=== PATIENT | male | born 2005 | race Caucasian/White ===

== ENCOUNTER 2024-11-24 12:57 | Outpatient (REF) | payer MEDICAID, SELFPAY ==
[2024-11-28 14:17] LABS: C. Trachomatis RNA TMA, Throat NOT DETECTED; N. gonorrhoeae RNA TMA, Throat NOT DETECTED
[2024-11-28 14:23] LABS: C.Trachomatis RNA TMA, Rectal NOT DETECTED; N.Gonorrhoeae RNA TMA, Rectal NOT DETECTED
== END 2024-11-24 12:58 | disposition home or self-care (01) ==
LOC: HO.HHCLNP 12:57
PROVIDERS: Visit Provider Internal Medicine
DX: Z11.3 Encounter for screening for infections with a predominantly sexual mode of transmission (principal); Z01.84 Encounter for antibody response examination
CPT/HCPCS: 36415; 87491; 87591

== ENCOUNTER 2025-03-30 11:35 | Outpatient (REF) | payer MEDICAID, SELFPAY ==
[2025-03-30 13:07] LABS: MANUAL DIFF FLAG NO
[2025-03-30 13:18] LABS: Basophils Percent Auto 0.6 % (0-2); Eosinophils Absolute Auto 0.1 X10*3/uL (0.0-0.4); Eosinophils Percent Auto 1.1 % (0-4); Hematocrit 44.5 % (42.0-52.0); Hemoglobin 14.6 g/dl (14.0-18.0); Imm Gran Abs Auto 0.01 X10*3/uL (0.00-0.03); Imm Gran Pct Auto 0.2 % (0.0-0.4); Lymphocytes Absolute Auto 2.3 X10*3/uL (1.2-4.9); Lymphocytes Percent Auto 43.7 % (20-40); Mean Corpuscular HGB Conc 32.8 g/dl (31.0-36.0); Mean Corpuscular Hemoglobin 25.9 pg (27.0-33.0); Mean Platelet Volume 10.5 fL (9.4-12.4); Monocytes Absolute Auto 0.5 X10*3/uL (0.1-1.2); Monocytes Percent Auto 10.1 % (2-11); Neutrophils Absolute Auto 2.3 x10*3/uL (2.0-8.3); Neutrophils Percent Auto 44.3 % (45-73); Platelet Count 282 X10*3/uL (160-400); Red Blood Count 5.63 X10*6/uL (4.60-5.80); White Blood Count 5.3 X10*3/uL (4.8-10.8)
[2025-03-30 14:07] LABS: Alanine Aminotransferase 21 U/L (0-40); Albumin Level 4.6 g/dL (3.5-5.0); Alkaline Phosphatase 124 U/L (39-117); Anion Gap 11 (12-20); Aspartate Amino Transferase 24 U/L (5-37); Bilirubin Total 0.3 mg/dL (0.0-1.0); Blood Urea Nitrogen 10 mg/dL (9-16); Calcium 9.7 mg/dL (8.4-10.2); Carbon Dioxide 27 mmol/L (22-29); Chloride 105 mmol/L (96-108); Estimated Glomerular Filt Rate > 60; Glucose Random 103 mg/dL (60-115); Potassium 4.4 mmol/L (3.3-5.1); Sodium 139 mmol/L (135-145); Total Protein 8.4 g/dL (6.5-8.0)
[2025-03-31 07:54] LABS: ~HepC Num1 0.11 S/CO (0.00-0.79); ~Hepatitis C Antibody Nonreactive (Nonreactive)
[2025-04-02 13:09] LABS: RPR Rapid Plasma Reagin NON-REACTIVE (NON-REACTIVE)
[2025-04-02 17:03] LABS: TS Negative Control Passed; TS Panel A 0; TS Panel B 0; TS Positive Control Passed; TSpotTB Negative (Negative)
[2025-04-04 03:58] LABS: HIV RNA PCR Qn Copies 82 copies/mL (NOT DETECTED); HIV RNA PCR Qn Log Copies 1.91 (NOT DETECTED)
[2025-04-05 01:33] LABS: Absolute CD3 Count 1787 cells/uL (840-3060); Absolute CD4 Count 885 cells/uL (490-1740); Absolute CD8 Count 922 cells/uL (180-1170); Absolute Lymphocytes 2445 cells/uL (850-3900); CD4 CD8 Ratio 0.96 (0.86-5.00); Percent CD3 Cells 73 % (57-85); Percent CD4 Cells 36 % (30-61); Percent CD8 Cells 38 % (12-42)
== END 2025-03-30 11:36 | disposition home or self-care (01) ==
LOC: HO.HHCL 11:35
PROVIDERS: Visit Provider Internal Medicine
DX: Z21 Asymptomatic human immunodeficiency virus [HIV] infection status (principal)
CPT/HCPCS: 36415; 80053; 85025; 86359; 86360; 86481; 86592; 86803; 87536

== ENCOUNTER 2025-03-30 15:37 | Outpatient (REF) | payer MEDICAID, SELFPAY ==
[2025-03-30 17:39] LABS: CT PCR NOT DETECTED (Not Detect.); NG PCR NOT DETECTED (Not Detect.)
== END 2025-03-30 15:38 | disposition home or self-care (01) ==
LOC: HO.HHCL 15:37
PROVIDERS: Visit Provider Internal Medicine
DX: Z21 Asymptomatic human immunodeficiency virus [HIV] infection status (principal); Z11.3 Encounter for screening for infections with a predominantly sexual mode of transmission
CPT/HCPCS: 87491; 87591